=== PATIENT | female | born 1970 | race Two or more races ===

== ENCOUNTER 2019-11-24 05:22 | Emergency (ER) | payer OTHER, SELFPAY ==
[~2019-11-24] VITALS: Ht 157.5 cm; Wt 60.0 kg
--- NOTE | 2019-11-24 05:35 | NUR ---
PT CAME INTO ED DUE TO HAVING PUSTULES/A BLISTERING RASH FOR 4 MONTHS. PT HAS BLISTERS ACROSS BACK AND HEAD, WELL ON EYE. PT STATES SHE CAME IN TO ER TODAY BECAUSE PT HAS RASH AND BLISTERING IN MOUTH WELL. PT STATES SHE NOW CANNOT EAT AND THATS WHY SHE CAME IN TODAY. PT STATES SHES BEEN GETTING SEEN AT [facility] FOR THIS. PT STATES SHE IS UNSURE WHAT MEDS THEY PUT HER ON. GROSS NEURO INTACT. CMS INTACT. NAD, VSS. PT PLACED ON SPO2/BP MONITORING. WCKAYCEE. ARGELIA SEBASTIAN AT BS FOR EVAL AND POC
[2019-11-24] MEDS ORDERED: HYDROcodone/APAP 7.5-325MG/15ML UDC ONE (05:52)
--- NOTE | 2019-11-24 05:59 | NUR ---
PT MEDICATED PER MAR. PT SITTING IN [place], AT BS, NAD, NO CHANGE IN CONDITION, WCTM. WAITING FOR LAB RESULTS
[2019-11-24] MEDS ORDERED: HYDROcodone/APAP 7.5-325MG/15ML UDC PO ONE ×2 (06:00)
[2019-11-24] MEDS ORDERED: PLEASE ENTER ALLERGIES MC SCH (06:00)
[2019-11-24 06:17] LABS: BASOPHILS # (AUTO) 0.01 x10^3/uL (0-0.1); BASOPHILS % (AUTO) 0 % (0-1); EOSINOPHILS # (AUTO) 0.24 x10^3/uL (0-0.4); EOSINOPHILS % (AUTO) 6 % (1-7); LYMPHOCYTES # (AUTO) 0.83 x10^3/uL (1-3.4); LYMPHOCYTES % (AUTO) 20 % (22-44); MD NO; MEAN CORPUSCULAR HEMOGLOBIN 20.5 pg (27.0-34.8); MEAN CORPUSCULAR HGB CONC 31.3 g/dL (32.4-35.8); MEAN CORPUSCULAR VOLUME 65.5 fL (80-100); MEAN PLATELET VOLUME 7.7 fL (7.4-10.4); MONOCYTES # (AUTO) 0.41 x10^3/uL (0.2-0.8); MONOCYTES % (AUTO) 10 % (2-9); NEUTROPHILS # (AUTO) 2.69 x10^3/uL (1.8-6.8); NEUTROPHILS % (AUTO) 64 % (42-75); PLATELET COUNT 264 x10^3/uL (130-400); RED BLOOD COUNT 4.72 x10^6/uL (3.82-5.3); RED CELL DISTRIBUTION WIDTH 20.9 % (9.6-15.2)
[2019-11-24 06:25] LABS: ALANINE AMINOTRANSFERASE 20 U/L (12-78); ALBUMIN 3.3 g/dL (3.4-5.0); ANION GAP 5 mmol/L (5-15); CALCIUM 8.7 mg/dL (8.5-10.1); CHLORIDE 112 mmol/L (98-107); CREATININE 0.87 mg/dL (0.55-1.02)
[2019-11-24 06:27] LABS: ALKALINE PHOSPHATASE 57 U/L (45-117); BILIRUBIN,TOTAL 0.5 mg/dL (0.2-1.0); TOTAL PROTEIN 6.9 g/dL (6.4-8.2)
--- NOTE | 2019-11-24 06:33 | NUR ---
PT SITTING IN ROOM STATES HER MOUTH FEELS SLIGHTLY BETTER. SITTING UP IN MARLA, EZEQUIEL, AT , WAITING FOR LAB RESULTS. WCTM. VSS.
[2019-11-24 06:46] VITALS: BP 101/62
--- NOTE | 2019-11-24 06:58 | NUR ---
Patient given discharge instructions and they have confirmed that they understand the instructions. Patient ambulatory with steady gait. NAD, ALL ADDITIONAL QUESTIONS ANSWERED APPROPRIATELY. VSS. DRIVING PT HOME. NO PT BELONGINGS LEFT IN ROOM AFTER DC.
== END 2019-11-24 07:00 | disposition home or self-care (01) ==
LOC: ED 06:42
DX: B00.1 Herpesviral vesicular dermatitis (principal); R21 Rash and other nonspecific skin eruption
CPT/HCPCS: 36415; 80053; 85025; 99283; J7512